=== PATIENT | female | born 1995 | race African-American/Black ===

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

== ENCOUNTER 2017-04-24 22:26 | Emergency (ER) | payer MEDICAID ==
[~2017-04-24] VITALS: Ht 154.9 cm; Wt 60.0 kg
[~2017-04-24 22:26] MED LIST changes: -CEPH-459 PO; +DIFL150T PO
[2017-04-24 22:28] VITALS: BP 134/76; PULSE 117; RESP 16; TEMP 98.5; O2SAT 99
--- NOTE | 2017-04-25 00:05 | PD ---
HPI Chief Complaint: Abdominal Pain Time Seen by Provider: 23:58 Travel History International Travel<30 days: No Contact w/Intl Traveler<30days: No Traveled to known affect area: No History of Present Illness HPI Patient comes in complaining of lower abdominal pains that she describes as crampy pain. Patient states ongoing for 2 weeks. Patient denies any dysuria, change in bowel or bladder, vaginal discharge, back pain, fevers, chest pain, or shortness of breath. Patient denies doing anything for this prior to coming emergency department. Denies anything making it better or worse. Patient is uncertain if she is . States she is A1 PFSH Past Medical History Medical History: Denies Significant Hx Diminished Hearing: No Immunizations Current: No Tetanus Vaccination: < 5 Years ?: Unknown LMP: 03/28/2017 : 2 Past Surgical History Ear Surgery: Yes (right ear tubes) Social History Alcohol Use: No Tobacco Use: No Substance Use: No Allergies-Medications (Allergen,Severity, Reaction): Coded Allergies: No Known Allergies (Unverified , 11/18/16) Reported Meds & Prescriptions Reported Meds & Active Scripts Active Diflucan (Fluconazole) 150 Mg Tab 150 Mg PO ONCE Review of Systems Except as stated in HPI: all other systems reviewed are Neg Physical Exam Narrative GENERAL: Well-developed, overly nourished, in no acute distress, and non-ill appearing. SKIN: Focused skin assessment warm and dry. HEAD: Atraumatic. Normocephalic. EYES: Pupils equal and round. EOMI. No scleral icterus. No injection or drainage. ENT: No nasal bleeding or discharge. Mucous membranes pink and moist. NECK: Trachea midline. Supple. No nuclear rigidity. CARDIOVASCULAR: Regular rate and rhythm. No murmur appreciated. RESPIRATORY: No accessory muscle use. No respiratory distress. Clear to auscultation. Breath sounds equal bilaterally. GASTROINTESTINAL: Abdomen soft, non-tender, nondistended, and no guarding. Hepatic and splenic margins not palpable. Normal bowel sounds 4. No pulsatile mass. MUSCULOSKELETAL: No obvious deformities. No clubbing. No cyanosis. No edema. Full range of motion. NEUROLOGICAL: Awake and alert. No obvious cranial nerve deficits. Motor grossly within normal limits. Normal speech. PSYCHIATRIC: Appropriate mood and affect; insight and judgment normal. Data Data Last Documented VS Vital Signs Date Time Temp Pulse Resp B/P (MAP) Pulse Ox O2 Delivery O2 Flow Rate FiO2 04/25/17 03:32 04/24/17 22:28 98.5 117 16 99 Room Air Orders Orders Beta Hcg (Quant/Titer) (04/25/17 00:01) Complete Blood Count With Diff (04/25/17 00:01) Comprehensive Metabolic Panel (04/25/17 00:01) Complete Rh (04/25/17 00:01) Urinalysis - C+S If Indicated (04/25/17 00:01) Iv Access Insert/Monitor (04/25/17 00:01) Ecg Monitoring (04/25/17 00:01) Ed Urine Pregnancytest Poc (04/25/17 00:01) Us Pelvis (Ques Pr/Ect)W Trans (04/25/17 ) Ed Discharge Order (04/25/17 03:00) Labs Laboratory Tests Test 04/25/17 00:00 04/25/17 00:45 Urine Color YELLOW Urine Turbidity CLEAR Urine pH 5.5 Urine Specific [place] 1.018 Urine Protein NEG mg/dL Urine Glucose (UA) NEG mg/dL Urine Ketones NEG mg/dL Urine Occult Blood NEG Urine Nitrite NEG Urine Bilirubin NEG Urine Urobilinogen LESS THAN 2.0 MG/DL Urine Leukocyte Esterase TRACE Urine RBC 1 /hpf Urine WBC 2 /hpf Urine Squamous Epithelial Cells 3 /hpf Urine Amorphous Sediment RARE Urine Bacteria OCC /hpf Urine Mucus FEW /lpf Microscopic Urinalysis Comment CULT NOT INDICATED White Blood Count 6.9 TH/MM3 Red Blood Count 4.52 MIL/MM3 Hemoglobin 13.2 GM/DL Hematocrit 40.2 % Mean Corpuscular Volume 88.9 FL Mean Corpuscular Hemoglobin 29.3 PG Mean Corpuscular Hemoglobin Concent 33.0 % Red Cell Distribution Width 20.6 % Platelet Count 262 TH/MM3 Mean Platelet Volume 8.4 FL Neutrophils (%) (Auto) 52.0 % Lymphocytes (%) (Auto) 38.2 % Monocytes (%) (Auto) 7.3 % Eosinophils (%) (Auto) 1.5 % Basophils (%) (Auto) 1.0 % Neutrophils # (Auto) 3.6 TH/MM3 Lymphocytes # (Auto) 2.6 TH/MM3 Monocytes # (Auto) 0.5 TH/MM3 Eosinophils # (Auto) 0.1 TH/MM3 Basophils # (Auto) 0.1 TH/MM3 CBC Comment DIFF FINAL Differential Comment Blood Urea Nitrogen 10 MG/DL Creatinine 0.85 MG/DL Random Glucose 69 MG/DL Total Protein 8.9 GM/DL Albumin 4.0 GM/DL Calcium Level 9.1 MG/DL Alkaline Phosphatase 53 U/L Aspartate Amino Transf (AST/SGOT) 33 U/L Alanine Aminotransferase (ALT/SGPT) 27 U/L Total Bilirubin 0.4 MG/DL Sodium Level 138 MEQ/L Potassium Level 3.7 MEQ/L Chloride Level 105 MEQ/L Carbon Dioxide Level 24.4 MEQ/L Anion Gap 9 MEQ/L Estimat Glomerular Filtration Rate 104 ML/MIN Human Chorionic Gonadotropin, Quant 718 MIU/ML [facility] Medical Decision Making Medical Screen Exam Complete: Yes Emergency Medical Condition: Yes Differential Diagnosis , UTI, ectopic , metabolic disturbance, ovarian cyst, ovarian torsion, other Narrative Course Patient presented with lower abdominal pain and the test was positive. Ultrasound was performed and there is no obvious evidence of a uterine . However the quantitative B-HcG was low and last menstrual cycle was recent and therefore eludes to an early not able to be seen by sonography. There is no evidence to suggest obvious ectopic or ruptured ectopic , nor cervicitis, PID or torsion at this time. There was no evidence to support colitis, diverticulitis, obstruction, abdominal or femoral herniation, volvulus, early appendicitis, or hernial incarceration or strangulation at this time. Patient is stable and no clinical evidence of anemia. There is no RH incompatibility. The patient therefore can be released at this time with acute follow up. Patient was warned on the possibility of an ectopic and to return IMMEDIATELY if the pain worsened and/or bleeding , felt faint or passed out. The patient was instructed to follow up with OB within 2 days, and was given contact information. She was given ectopic warnings and warnings to return if felt faint or passed out, fever, worsening pain, inability to tolerate fluids, or as needed. The patient agreed with plan and stated will follow up as instructed. Patient in no obvious distress upon re-evaluation. All pertinent laboratory/ Radiology result(s) discussed with patient. Any questions/concerns in reference to patient diagnosis/condition discussed and clarified prior to patient's discharge. Reinforced sheer importance of close follow up with an OB. Instructed patient to return to ED immediately, if symptoms return/worsen. Patient showed understanding of above instructions. Further instructions and recommendations were detailed in discharge paperwork. Patient ambulated without difficulty out of ED at discharge. Diagnosis Primary Impression: Early stage of Referrals: [facility] Patient Instructions: Abdominal Pain in (ED), General Instructions Additional Instructions: Follow-up with your OB in 48 hours or return here in 48 hours for recheck. Started taking [id number] vitamins. Follow instructions on the packaging. Return to the emergency department if symptoms get worse. Med/Other Pt SpecificInfo: Prescription(s) given Disposition: 01 DISCHARGE HOME Condition: Stable Delon Ndiaye Apr 25, 2017 00:05
[2017-04-25 00:56] LABS: AUTOMATED NEUTROPHIL # 3.6 TH/MM3 (1.8-7.7); BASOPHIL # 0.1 TH/MM3 (0-0.2); EOSINOPHIL # 0.1 TH/MM3 (0-0.4); EOSINOPHIL % 1.5 % (0.0-4.0); HEMATOCRIT 40.2 % (35.0-46.0); HEMO FLAGS DIFF FINAL; LYMPH % 38.2 % (9.0-44.0); LYMPHOCYTE # 2.6 TH/MM3 (1.0-4.8); MEAN CELL VOLUME 88.9 FL (80.0-100.0); MEAN CORPUSCULAR HEMOGLOBIN 29.3 PG (27.0-34.0); MONO % 7.3 % (0.0-8.0); PLATELET COUNT 262 TH/MM3 (150-450); RED BLOOD COUNT 4.52 MIL/MM3 (4.00-5.30); RED CELL DISTRIBUTION WIDTH 20.6 % (11.6-17.2); WHITE BLOOD COUNT 6.9 TH/MM3 (4.0-11.0)
[2017-04-25 00:57] LABS: BACTERIA, URINE OCC /hpf; BLOOD, URINE NEG (NEG); COMMENT (UR) CULT NOT INDICATED; CULTURE IF INDICATED CULT NOT INDICATED; GLUCOSE,URINE NEG (NEG); KETONE, URINE NEG (NEG); MUCUS URINE FEW /lpf (OCC); NITRITE,URINE NEG (NEG); PH, URINE 5.5 (5.0-8.5); SQUAMOUS EPITHELIAL CELL URINE 3 /hpf (0-5); URINE COLOR YELLOW (YELLW/STRAW)
[2017-04-25 01:15] LABS: ALKALINE PHOSPHATASE 53 U/L (45-117); ALT (GPT) 27 U/L (9-42); BETA HCG QUANT 718 MIU/ML (0-5); TOTAL BILIRUBIN ADULT 0.4 MG/DL (0.2-1.0)
[2017-04-25 01:18] LABS: ANION GAP 9 MEQ/L (5-15); AST (GOT) 33 U/L (16-38); BICARBONATE 24.4 MEQ/L (21.0-32.0); BLOOD UREA NITROGEN 10 MG/DL (7-18); CHLORIDE 105 MEQ/L (98-107); GLOMERULAR FILTRATION RATE 104 ML/MIN (>89); SODIUM (NA) 138 MEQ/L (136-145)
[2017-04-25 01:19] LABS: POTASSIUM 3.7 MEQ/L (3.5-5.1)
--- NOTE | 2017-04-25 02:46 | RADRPT ---
EXAM DATE/TIME: 04/25/2017 01:37 [place] COMPARISON: No previous studies available for comparison. INDICATIONS : Nausea. Pelvic cramping. LAB(S): Beta-hC MEDICAL HISTORY : . SURGICAL HISTORY : Right ear tubes. ENCOUNTER: Initial ACUITY: 2 weeks PAIN SCORE: 3/10 LOCATION: Bilateral pelvis MEASUREMENTS: UTERUS: 6.8 x 4.0 x 3.4 cm ENDOMETRIAL STRIPE: 8 mm RIGHT OVARY: 1.8 x 2.8 x 2.6 cm LEFT OVARY: 1.7 x 1.4 x 1.2 cm FREE FLUID: Yes cul de sac FINDINGS: UTERUS: The myometrium has homogeneous echotexture without mass.There is a small hypoechoic collection within the endometrial lining measuring 1.3 x 0.8 x 0.9 cm., Could be an early gestational sac. RIGHT OVARY: Ovary contains no mass or significant cystic lesion. LEFT OVARY: Ovary contains no mass or significant cystic lesion. MISCELLANEOUS: minimal free fluid. CONCLUSION: Small hypoechoic collection within the uterus, could be an early gestational sac. No adnexal masses a re identified. Dell Fields MD on April 25, 2017 at 2:43 Board Certified Radiologist. This report was verified electronically.
== END 2017-04-25 03:32 | disposition home or self-care (01) ==
LOC: NEPD 22:26
DX: O26.891 Other specified pregnancy related conditions, first trimester (principal); R10.30 Lower abdominal pain, unspecified; Z3A.01 Less than 8 weeks gestation of pregnancy
CPT/HCPCS: 76700; 76817; 80053; 81001; 84702; 84703; 85025; 86901; 99284

== ENCOUNTER 2017-04-28 21:53 | Emergency (ER) | payer MEDICAID ==
[2017-04-28 21:54] VITALS: BP 134/72; PULSE 106; RESP 15; TEMP 99.1; O2SAT 100
--- NOTE | 2017-04-28 22:26 | PD ---
HPI Chief Complaint: Related Problem Time Seen by Provider: 22:15 Travel History International Travel<30 days: No Contact w/Intl Traveler<30days: No Traveled to known affect area: No History of Present Illness HPI Patient is a 21-year-old female who returns to emergency room for repeat hCG Quant. Patient reports that she was seen in emergency room on April 25, 2017 as she was having lower abdominal cramping pain for the past 2 weeks, reports that it was here in the ER that she was diagnosed with . Patient reports that this is her first , reports "I didn't even know I was ." Patient is unsure of when her first day for last menstrual cycle was. Patient reports that she was told to return to the emergency room in 3 days for repeat hCG Quant as her hCG Quant on April 25, 2017 with 718. Patient reports no abdominal pain, denies any nausea or vomiting, denies any vaginal discharge or bleeding. Patient with absolutely no complaints at this time. Patient reports that she will follow up with her OB equine manager when she goes home as she does not live in this area. [facility] Past Medical History Medical History: Denies Significant Hx Diminished Hearing: No Immunizations Current: No ?: LMP: 03/24/17 : 2 Past Surgical History Surgical History: No Previous Surgery Ear Surgery: Yes (right ear tubes) Social History Alcohol Use: No Tobacco Use: No Substance Use: No Allergies-Medications (Allergen,Severity, Reaction): Coded Allergies: No Known Allergies (Verified Adverse Reaction, Unknown, 04/28/17) Reported Meds & Prescriptions Reported Meds & Active Scripts Active Diflucan (Fluconazole) 150 Mg Tab 150 Mg PO ONCE Review of Systems General / Constitutional: No: Fever Eyes: No: Visual changes HENT: No: Headaches Cardiovascular: No: Chest Pain or Discomfort Respiratory: No: Shortness of Breath Gastrointestinal: No: Abdominal Pain Genitourinary: No: Dysuria Musculoskeletal: No: Pain Skin: No Rash Neurologic: No: Weakness Psychiatric: No: Depression Endocrine: No: Polydipsia Hematologic/Lymphatic: No: Easy Bruising Physical Exam Narrative GENERAL: NAD, nontoxic SKIN: Focused skin assessment warm/dry. HEAD: Atraumatic. Normocephalic. EYES: Pupils equal and round. No scleral icterus. No injection or drainage. ENT: No nasal bleeding or discharge. Mucous membranes pink and moist. NECK: Trachea midline. No JVD. CARDIOVASCULAR: Regular rate and rhythm. No murmur appreciated. RESPIRATORY: No accessory muscle use. Clear to auscultation. Breath sounds equal bilaterally. GASTROINTESTINAL: Abdomen soft, non-tender, nondistended. Hepatic and splenic margins not palpable. MUSCULOSKELETAL: No obvious deformities. No clubbing. No cyanosis. No edema. NEUROLOGICAL: Awake and alert. Motor grossly within normal limits. Normal speech. PSYCHIATRIC: Appropriate mood and affect; insight and judgment normal. Data Data Last Documented VS Vital Signs Date Time Temp Pulse Resp B/P (MAP) Pulse Ox O2 Delivery O2 Flow Rate FiO2 04/28/17 21:54 99.1 106 15 134/72 (92) 100 Room Air Orders Orders Beta Hcg (Quant/Titer) (04/28/17 22:18) Labs Laboratory Tests Test 04/28/17 22:20 Human Chorionic Gonadotropin, Quant 2842 MIU/ML MDM Medical Decision Making Medical Screen Exam Complete: Yes Emergency Medical Condition: Yes Medical Record Reviewed: Yes Interpretation(s) Vital Signs Date Time Temp Pulse Resp B/P (MAP) Pulse Ox O2 Delivery O2 Flow Rate FiO2 04/28/17 21:54 99.1 106 15 134/72 (92) 100 Room Air Differential Diagnosis Narrative Course 21-year-old female who presents to emergency for repeat hCG Quant HCG Quant on April 25, 2017 with 718 Patient with no abdominal pain or cramping or nausea or vomiting, no vaginal discharge or bleeding this time. Patient is completely asymptomatic and here only for repeat hCG Quant as she was told that she had early on her last ER visit. Laboratory Tests Test 04/28/17 22:20 Human Chorionic Gonadotropin, Quant 2842 MIU/ML (0-5) patient's HCG quant increased, patient with no complaints, no vag bleeding or discharge. She will follow up with her paid search manager and courtney return to ER as needed Diagnosis Primary Impression: Qualified Codes: Z34.90 - Encounter for supervision of normal , unspecified, unspecified trimester Patient Instructions: General Instructions Additional Instructions: Please provide patient with a copy of their lab work at discharge Please follow up with your ob-shredding machine knife changer as soon as possible Return to the ER as needed Disposition: 01 DISCHARGE HOME Condition: Stable Mica Woodson DO Apr 28, 2017 22:26
[2017-04-28 23:13] LABS: BETA HCG QUANT 2842 MIU/ML (0-5)
== END 2017-04-28 23:52 | disposition home or self-care (01) ==
LOC: NEPD 21:53
DX: O26.891 Other specified pregnancy related conditions, first trimester (principal); R10.30 Lower abdominal pain, unspecified; Z34.91 Encounter for supervision of normal pregnancy, unspecified, first trimester; Z79.899 Other long term (current) drug therapy
CPT/HCPCS: 84702; 99281

== ENCOUNTER 2017-05-09 21:41 | Emergency (ER) | payer MEDICAID ==
[~2017-05-09] VITALS: Ht 162.6 cm; Wt 58.0 kg
[2017-05-09 21:41] VITALS: BP 120/65; PULSE 106; RESP 16; TEMP 98.5; O2SAT 98
[2017-05-10 00:08] LABS: AUTOMATED NEUTROPHIL # 3.3 TH/MM3 (1.8-7.7); BASOPHIL % 0.7 % (0.0-2.0); EOSINOPHIL # 0.1 TH/MM3 (0-0.4); EOSINOPHIL % 1.9 % (0.0-4.0); HEMATOCRIT 38.5 % (35.0-46.0); HEMO FLAGS DIFF FINAL; LYMPH % 35.1 % (9.0-44.0); LYMPHOCYTE # 2.2 TH/MM3 (1.0-4.8); MEAN CELL VOLUME 89.6 FL (80.0-100.0); MEAN CORPUSCULAR HEMOGLOBIN 29.6 PG (27.0-34.0); MONO % 8.8 % (0.0-8.0); NEUT % 53.5 % (16.0-70.0); PLATELET COUNT 267 TH/MM3 (150-450); RED CELL DISTRIBUTION WIDTH 20.2 % (11.6-17.2); WHITE BLOOD COUNT 6.1 TH/MM3 (4.0-11.0)
[2017-05-10 00:40] LABS: BICARBONATE 26.5 MEQ/L (21.0-32.0); POTASSIUM 3.9 MEQ/L (3.5-5.1)
[2017-05-10 01:18] LABS: BACTERIA, URINE RARE /hpf; BLOOD, URINE LARGE (NEG); COMMENT (UR) CULT NOT INDICATED; CULTURE IF INDICATED CULT NOT INDICATED; GLUCOSE,URINE NEG (NEG); KETONE, URINE NEG (NEG); MUCUS URINE FEW /lpf (OCC); NITRITE,URINE NEG (NEG); PH, URINE 6.5 (5.0-8.5); SQUAMOUS EPITHELIAL CELL URINE 13 /hpf (0-5); URINE COLOR YELLOW (YELLW/STRAW)
--- NOTE | 2017-05-10 01:28 | PD ---
HPI Chief Complaint: Bed Setter Problem/Complaint Time Seen by Provider: 23:38 Travel History International Travel<30 days: No Contact w/Intl Traveler<30days: No Traveled to known affect area: No History of Present Illness HPI 21-year-old female here for evaluation of possible miscarriage. Patient reports that her last menstrual. Was March 24. She states she was seen in the emergency department here on 04/24/17 as well as 04/28/17. These charts were reviewed and the patient's first visit show the patient had a positive test with an inconclusive pelvic ultrasound. On the next visit the patient had an appropriately increasing beta hCG. She states that yesterday she had some right lower quadrant cramping, and today she noted some vaginal spotting. She has not noted any clots. Currently no abdominal pain or cramping. This is her first . [facility] Past Medical History Diminished Hearing: No Immunizations Current: Yes Tetanus Vaccination: Unknown Influenza Vaccination: Yes ?: Unknown LMP: 03/24/17 : 2 Past Surgical History Ear Surgery: Yes (right ear tubes) Social History Alcohol Use: No Tobacco Use: No Substance Use: No Allergies-Medications (Allergen,Severity, Reaction): Coded Allergies: No Known Allergies (Verified Adverse Reaction, Unknown, 05/09/17) Reported Meds & Prescriptions Reported Meds & Active Scripts Active No Active Prescriptions or Reported Medications Review of Systems Except as stated in HPI: all other systems reviewed are Neg Physical Exam Narrative GENERAL: Well-developed, well-nourished, comfortable, no apparent distress. SKIN: Focused skin assessment warm/dry. No pallor. HEAD: Atraumatic. Normocephalic. EYES: Pupils equal and round. No scleral icterus. No injection or drainage. ENT: Mucous membranes pink and moist. NECK: Trachea midline. No JVD. CARDIOVASCULAR: Regular rate and rhythm. No murmur appreciated. RESPIRATORY: No accessory muscle use. Clear to auscultation. Breath sounds equal bilaterally. GASTROINTESTINAL: Abdomen soft, non-tender, nondistended. MUSCULOSKELETAL: No obvious deformities. No clubbing. No cyanosis. No edema. NEUROLOGICAL: Awake and alert. No obvious cranial nerve deficits. Motor grossly within normal limits. Normal speech. PSYCHIATRIC: Appropriate mood and affect; insight and judgment normal. Data Data Last Documented VS Vital Signs Date Time Temp Pulse Resp B/P (MAP) Pulse Ox O2 Delivery O2 Flow Rate FiO2 05/09/17 21:41 98.5 106 16 120/65 (83) 98 Room Air Orders Orders Beta Hcg (Quant/Titer) (05/09/17 23:45) Complete Blood Count With Diff (05/09/17 23:45) Basic Metabolic Panel (Bmp) (05/09/17 23:45) Urinalysis - C+S If Indicated (05/09/17 23:45) Ed Urine Pregnancytest Poc (05/09/17 23:49) Us Pelvis (Ques Pr/Ect)W Trans (05/10/17 ) Labs Laboratory Tests Test 05/09/17 23:55 05/10/17 00:30 White Blood Count 6.1 TH/MM3 Red Blood Count 4.30 MIL/MM3 Hemoglobin 12.7 GM/DL Hematocrit 38.5 % Mean Corpuscular Volume 89.6 FL Mean Corpuscular Hemoglobin 29.6 PG Mean Corpuscular Hemoglobin Concent 33.0 % Red Cell Distribution Width 20.2 % Platelet Count 267 TH/MM3 Mean Platelet Volume 8.6 FL Neutrophils (%) (Auto) 53.5 % Lymphocytes (%) (Auto) 35.1 % Monocytes (%) (Auto) 8.8 % Eosinophils (%) (Auto) 1.9 % Basophils (%) (Auto) 0.7 % Neutrophils # (Auto) 3.3 TH/MM3 Lymphocytes # (Auto) 2.2 TH/MM3 Monocytes # (Auto) 0.5 TH/MM3 Eosinophils # (Auto) 0.1 TH/MM3 Basophils # (Auto) 0.0 TH/MM3 CBC Comment DIFF FINAL Differential Comment Blood Urea Nitrogen 7 MG/DL Creatinine 0.68 MG/DL Random Glucose 70 MG/DL Calcium Level 9.1 MG/DL Sodium Level 138 MEQ/L Potassium Level 3.9 MEQ/L Chloride Level 105 MEQ/L Carbon Dioxide Level 26.5 MEQ/L Anion Gap 7 MEQ/L Estimat Glomerular Filtration Rate 135 ML/MIN Human Chorionic Gonadotropin, Quant 44727 MIU/ML Urine Color YELLOW Urine Turbidity HAZY Urine pH 6.5 Urine Specific [place] 1.022 Urine Protein TRACE mg/dL Urine Glucose (UA) NEG mg/dL Urine Ketones NEG mg/dL Urine Occult Blood LARGE Urine Nitrite NEG Urine Bilirubin NEG Urine Urobilinogen LESS THAN 2.0 MG/DL Urine Leukocyte Esterase TRACE Urine RBC 10 /hpf Urine WBC 2 /hpf Urine Squamous Epithelial Cells 13 /hpf Urine Bacteria RARE /hpf Urine Mucus FEW /lpf Microscopic Urinalysis Comment CULT NOT INDICATED MDM Medical Decision Making Medical Screen Exam Complete: Yes Emergency Medical Condition: Yes Medical Record Reviewed: Yes Differential Diagnosis Threatened , inevitable , , ectopic , implantation bleeding, subchorionic hemorrhage, spontaneous Narrative Course Initial vital signs show heart rate 106, blood pressure 120/65, pulse ox 98% on room air, oral temp of 98.5F. CBC: WBC 6.1, hemoglobin 12.7, hematocrit 38.5, platelets 267. BMP is unremarkable. Beta hCG is 12,064. Blood type from previous visit is A+. UA shows hazy urine, large occult blood, trace leukocyte esterase, 10 rbc's, rare bacteria, few mucus, 13 epithelial cells Pelvic ultrasound: CONCLUSION: 1. No IUP is seen. 2. Moderate free fluid in the cul-de-sac. 3. An ectopic cannot be excluded. Pelvic exam shows small amount of blood in the vaginal vault with a closed cervix. 2:15 AM: Case discussed with on-call OB hospitalist Dr. Palacio who will present to the emergency department to evaluate the patient as this is likely an ectopic . At approximately 3:00 AM the patient was signed out to ER physician Dr. Whelan pending evaluation by OB hospitalist Dr. Palacio and disposition. Scripts No Active Prescriptions or Reported Meds Garcia Wyman MD May 10, 2017 01:28
--- NOTE | 2017-05-10 01:58 | RADRPT ---
EXAM DATE/TIME: 05/10/2017 01:09 [place] COMPARISON: US PELVIS (QUEST PREG/ECTOPIC) W/TRANSVAG, April 25, 2017, 1:37. INDICATIONS : Bleeding with . LAB(S): Beta-hC,064 MEDICAL HISTORY : . SURGICAL HISTORY : Ear tubes. ENCOUNTER: Subsequent ACUITY: 1 day PAIN SCORE: 0/10 LOCATION: Bilateral pelvis MEASUREMENTS: UTERUS: 6.6 x 4.2 x 4.6 cm ENDOMETRIAL STRIPE: 18 mm RIGHT OVARY: 3.2 x 1.5 x 1.8 cm LEFT OVARY: 2.7 x 1.2 x 1.3 cm FREE FLUID: Yes Cul-de-sac CROWN RUMP LENGTH: None FHR: None FINDINGS: UTERUS: The uterus is retroflexed. The endometrium appears thickened and heterogeneous with a gestational sac is not seen. There is a small amount of fluid within the endocervical canal. RIGHT OVARY: Ovary contains no mass or significant cystic lesion. LEFT OVARY: Ovary contains no mass or significant cystic lesion. Small subcentimeter cysts/follicles are seen. MISCELLANEOUS: There is moderate free fluid. CONCLUSION: 1. No IUP is seen. 2. Moderate free fluid in the cul-de-sac. 3. An ectopic cannot be excluded. Prince Joshi MD on May 10, 2017 at 1:51 Board Certified Radiologist. This report was verified electronically.
[2017-05-10 03:30] VITALS: BP 96/64; PULSE 89; RESP 16; O2SAT 98
[2017-05-10 04:55] LABS: INDIRECT BILIRUBIN 0.1 MG/DL (0.0-0.8); TOTAL BILIRUBIN ADULT 0.2 MG/DL (0.2-1.0)
--- NOTE | 2017-05-10 04:56 | PD.CONS ---
HPI Chief Complaint Ectopic Date Seen: May 10, 2017 Time Seen: 04:30 Travel History International Travel<30 Days: No Contact w/Intl Traveler<30Days: No Known Affected Area: No History of Present Illness HPI Patient is 21-year-old black female who is in early presented week ago for test check an ultrasound. When she had that ultrasound showed an empty uterus on scan and a quantitative hCG of 700 she was told return in 3 days she's come back in a week her hCG now is 12,000 and her uterus is still no gestational sac just thickened tissue and small areas of fluid dispersed in the and the uterus and endocervical canal. She has no pelvic pain she has had some bleeding at times heavier than a period with small clots but today is only bleeding minimally. Findings are consistent with ectopic gestation and that she's had never had a gestational sac and her quantitative risen rather rapidly in the last week Weeks Gestation: 4 Para: 0 : 1 Last Menstrual Period: Mar 24, 2017 History Past Surgical History Narrative Surgical PE tubes in her ears Social History Alcohol Use: No Tobacco Use: No Substance Abuse: No Allergies-Medications (Allergen,Severity, Reaction): Coded Allergies: No Known Allergies (Verified Adverse Reaction, Unknown, 05/09/17) Home Meds Discontinued Scripts Fluconazole (Diflucan) 150 Mg Tab, 150 MG PO ONCE for Infection, #1 TAB 0 Refills Prov:Garcia Wyman MD 11/18/16 Review of Systems General / Constitutional: No: Fever, Weight Gain, Chills, Other Eyes: No: Diploplia, Blurred Vision, Visual changes, Pain, Photophobia HENT: No: Headaches, Vertigo, Lightheadedness Cardiovascular: No: Irregular Rhythm, Chest Pain or Discomfort, Palpitations, Tachycardia, Syncope, Varicosities, Edema, Cyanosis Respiratory: No: Cough, Short of Breath, Other Gastrointestinal: No: Nausea, Vomiting, Diarrhea Genitourinary: No: Decreased Urinary Output, Oliguria Musculoskeletal: No: Limited ROM, Weakness, Cramping, Edema, Pain Skin: No Rash, No Itching, No Dryness, No Lumps, No Change in Pigmentation, No Change in Nails, No Alopecia, No Lesions Neurologic: No: Weakness, Dizziness, Syncope, Focal Abnormalities, Coordination Problem, Headache, Slurred Speech, Seizures Psychiatric: No: Depression, Suicidal Ideations, Homicidal Ideation Endocrine: No: Heat Intolerance, Cold Intolerance, Polydipsia, Polyuria, Other Physical Exam Vital Signs Date Time Temp Pulse Resp B/P (MAP) Pulse Ox O2 Delivery O2 Flow Rate FiO2 05/10/17 03:30 89 16 96/64 (75) 98 Room Air 05/09/17 21:41 98.5 106 16 120/65 (83) 98 Room Air Narrative GENERAL: Well-nourished, well-developed patient. SKIN: Warm and dry. HEAD: Normocephalic and atraumatic. EYES: No scleral icterus. No injection or drainage. ENT: No nasal drainage noted. Mucous membranes pink. Airway patent. NECK: Supple, trachea midline. No JVD. CARDIOVASCULAR: Regular rate and rhythm without murmurs, gallops, or rubs. RESPIRATORY: Breath sounds equal bilaterally. No accessory muscle use. BREASTS: Bilateral exam showed no masses , no retractions, no nipple discharge. ABDOMEN/GI: Abdomen soft, non-tender, bowel sounds present, no rebound, no guarding GENITOURINARY: External Genitalia: intact and normal in appearance BUS glands: [-] Cervix: [no -Cervical motion tenderness] Uterus is retroflexed small nontender as no adnexal masses or pain to palpation of the adnexa EXTREMITIES: No cyanosis or edema. BACK: Nontender without obvious deformity. No CVA tenderness. NEUROLOGICAL: Awake and alert. Motor and sensory grossly within normal limits. Five out of 5 muscle strength in all muscle groups. Normal speech. Data Data Orders Orders Beta Hcg (Quant/Titer) (05/09/17 23:45) Complete Blood Count With Diff (05/09/17 23:45) Basic Metabolic Panel (Bmp) (05/09/17 23:45) Urinalysis - C+S If Indicated (05/09/17 23:45) Ed Urine Pregnancytest Poc (05/09/17 23:49) Us Pelvis (Ques Pr/Ect)W Trans (05/10/17 ) Hepatic Functional Panel (05/10/17 04:25) Methotrexate Pf Inj (Methotrexate Pf Inj (05/10/17 05:00) Labs Laboratory Tests Test 05/09/17 23:55 05/10/17 00:30 White Blood Count 6.1 Red Blood Count 4.30 Hemoglobin 12.7 Hematocrit 38.5 Mean Corpuscular Volume 89.6 Mean Corpuscular Hemoglobin 29.6 Mean Corpuscular Hemoglobin Concent 33.0 Red Cell Distribution Width 20.2 Platelet Count 267 Mean Platelet Volume 8.6 Neutrophils (%) (Auto) 53.5 Lymphocytes (%) (Auto) 35.1 Monocytes (%) (Auto) 8.8 Eosinophils (%) (Auto) 1.9 Basophils (%) (Auto) 0.7 Neutrophils # (Auto) 3.3 Lymphocytes # (Auto) 2.2 Monocytes # (Auto) 0.5 Eosinophils # (Auto) 0.1 Basophils # (Auto) 0.0 CBC Comment DIFF FINAL Differential Comment Blood Urea Nitrogen 7 Creatinine 0.68 Random Glucose 70 Calcium Level 9.1 Sodium Level 138 Potassium Level 3.9 Chloride Level 105 Carbon Dioxide Level 26.5 Anion Gap 7 Estimat Glomerular Filtration Rate 135 Human Chorionic Gonadotropin, Quant 91380 Urine Color YELLOW Urine Turbidity HAZY Urine pH 6.5 Urine Specific [place] 1.022 Urine Protein TRACE Urine Glucose (UA) NEG Urine Ketones NEG Urine Occult Blood LARGE Urine Nitrite NEG Urine Bilirubin NEG Urine Urobilinogen LESS THAN 2.0 Urine Leukocyte Esterase TRACE Urine RBC 10 Urine WBC 2 Urine Squamous Epithelial Cells 13 Urine Bacteria RARE Urine Mucus FEW Microscopic Urinalysis Comment CULT NOT INDICATED MDM Interpretation(s) Patient is 21-year-old black female with ectopic gestation is supported by the evidence that she has an empty uterus on ultrasound no gestational sac in the 2 scans noted and a rising hCGs now 12,000 ectopic is intact she has no blood in the abdomen she has no pain on exam or and general, she is having some vaginal spotting at this time Plan Plan is 75 mg of methotrexate IM, with repeat labs drawn on day 4 of therapy which would be Tuesday this week and then day 7 of therapy with next Tuesday. Arrange follow-up with Dr. Mallory Fuentes's office as she is the LIVING SKILLS ADVISOR backup tonight. Patient counseled to avoid the vitamins and any Folic acid or folate- containing products and diet. Avoid NSAIDs as well Diagnosis: ectopic Disposition: DISCHARGE HOME Condition: Stable Scripts No Active Prescriptions or Reported Meds Chase Palacio II, MD May 10, 2017 04:56
[2017-05-10] MEDS ORDERED: METHOTREXATE SOD PF 50 MG/2 ML VIAL IM SCH (05:00)
--- NOTE | 2017-05-10 05:04 | PD ---
Physical Exam Narrative Patient was seen by ED physician and ED OB. Patient was given methotrexate and discharge. Data Data Last Documented VS Vital Signs Date Time Temp Pulse Resp B/P (MAP) Pulse Ox O2 Delivery O2 Flow Rate FiO2 05/10/17 05:19 05/10/17 03:30 89 16 98 Room Air 05/09/17 21:41 98.5 Orders Orders Beta Hcg (Quant/Titer) (05/09/17 23:45) Complete Blood Count With Diff (05/09/17 23:45) Basic Metabolic Panel (Bmp) (05/09/17 23:45) Urinalysis - C+S If Indicated (05/09/17 23:45) Ed Urine Pregnancytest Poc (05/09/17 23:49) Us Pelvis (Ques Pr/Ect)W Trans (05/10/17 ) Hepatic Functional Panel (05/10/17 04:25) Methotrexate Pf Inj (Methotrexate Pf Inj (05/10/17 05:00) Ed Discharge Order (05/10/17 05:02) Labs Laboratory Tests Test 05/09/17 23:55 05/10/17 00:30 White Blood Count 6.1 TH/MM3 Red Blood Count 4.30 MIL/MM3 Hemoglobin 12.7 GM/DL Hematocrit 38.5 % Mean Corpuscular Volume 89.6 FL Mean Corpuscular Hemoglobin 29.6 PG Mean Corpuscular Hemoglobin Concent 33.0 % Red Cell Distribution Width 20.2 % Platelet Count 267 TH/MM3 Mean Platelet Volume 8.6 FL Neutrophils (%) (Auto) 53.5 % Lymphocytes (%) (Auto) 35.1 % Monocytes (%) (Auto) 8.8 % Eosinophils (%) (Auto) 1.9 % Basophils (%) (Auto) 0.7 % Neutrophils # (Auto) 3.3 TH/MM3 Lymphocytes # (Auto) 2.2 TH/MM3 Monocytes # (Auto) 0.5 TH/MM3 Eosinophils # (Auto) 0.1 TH/MM3 Basophils # (Auto) 0.0 TH/MM3 CBC Comment DIFF FINAL Differential Comment Blood Urea Nitrogen 7 MG/DL Creatinine 0.68 MG/DL Random Glucose 70 MG/DL Calcium Level 9.1 MG/DL Sodium Level 138 MEQ/L Potassium Level 3.9 MEQ/L Chloride Level 105 MEQ/L Carbon Dioxide Level 26.5 MEQ/L Anion Gap 7 MEQ/L Estimat Glomerular Filtration Rate 135 ML/MIN Total Bilirubin 0.2 MG/DL Direct Bilirubin 0.1 MG/DL Indirect Bilirubin 0.1 MG/DL Aspartate Amino Transf (AST/SGOT) 17 U/L Alanine Aminotransferase (ALT/SGPT) 23 U/L Alkaline Phosphatase 53 U/L Total Protein 8.2 GM/DL Albumin 3.5 GM/DL Human Chorionic Gonadotropin, Quant 12238 MIU/ML Urine Color YELLOW Urine Turbidity HAZY Urine pH 6.5 Urine Specific [place] 1.022 Urine Protein TRACE mg/dL Urine Glucose (UA) NEG mg/dL Urine Ketones NEG mg/dL Urine Occult Blood LARGE Urine Nitrite NEG Urine Bilirubin NEG Urine Urobilinogen LESS THAN 2.0 MG/DL Urine Leukocyte Esterase TRACE Urine RBC 10 /hpf Urine WBC 2 /hpf Urine Squamous Epithelial Cells 13 /hpf Urine Bacteria RARE /hpf Urine Mucus FEW /lpf Microscopic Urinalysis Comment CULT NOT INDICATED MDM Supervised Visit with SARAH: No Narrative Course Patient was seen by ED physician and ED OB. Patient was given methotrexate and discharge. Diagnosis Primary Impression: Ectopic Qualified Codes: O00.90 - Unspecified ectopic without intrauterine Patient Instructions: General Instructions Additional Instruction: Follow-up with residential support specialist as directed. Return if increased abdominal pain, increasing vaginal bleeding, fever. Med/Other Pt SpecificInfo: No Meds Exist/No RX given Scripts No Active Prescriptions or Reported Meds Disposition: 01 DISCHARGE HOME Condition: Stable Eddie Whelan MD May 10, 2017 05:04
== END 2017-05-10 05:20 | disposition home or self-care (01) ==
LOC: NEPD 21:41
DX: O00.90 Unspecified ectopic pregnancy without intrauterine pregnancy (principal)
CPT/HCPCS: 76700; 76817; 80048; 80076; 81001; 84702; 84703; 85025; 96372; 99285; J9250

== ENCOUNTER 2017-05-14 23:23 | Emergency (ER) | payer MEDICAID ==
[2017-05-14 23:24] VITALS: BP 144/63; PULSE 95; RESP 18; TEMP 97.5; O2SAT 99
--- NOTE | 2017-05-14 23:46 | PD ---
HPI Chief Complaint: Abdominal Pain Time Seen by Provider: 23:42 Travel History International Travel<30 days: No Contact w/Intl Traveler<30days: No Traveled to known affect area: No History of Present Illness HPI 21-year-old female presents for evaluation of 2 separate complaints. She reports lower abdominal cramping which is been ongoing for the past several days. She was recently diagnosed with ectopic and received methotrexate on May 10. She was supposed to have a repeat quantitative hCG drawn yesterday however she missed her pulmonary [facility]. She reports that she follow-up at Dr. Singh office a few days ago as instructed. She reports that she has continued to have some vaginal bleeding with some clots. She denies any dizziness, lightheadedness, nausea, vomiting, fevers, chills, dysuria. In addition the patient is complaining of a bump on her right buttocks. She first noticed it a few weeks ago but it has gotten larger over the past few days. She reports some soreness when she sits. Denies any drainage. She has no other complaints. [facility] Past Medical History Diminished Hearing: No Immunizations Current: Yes ?: Not : 2 Past Surgical History Ear Surgery: Yes (right ear tubes) Social History Alcohol Use: No Tobacco Use: No Substance Use: No Allergies-Medications (Allergen,Severity, Reaction): Coded Allergies: No Known Allergies (Verified Adverse Reaction, Unknown, 05/09/17) Reported Meds & Prescriptions Reported Meds & Active Scripts Active No Active Prescriptions or Reported Medications Review of Systems Except as stated in HPI: all other systems reviewed are Neg Physical Exam Narrative GENERAL: Well-developed well-nourished female in no acute distress SKIN: Warm and dry. 0.5 cm fluctuant cystic lesion on the right buttocks. Tender to palpation with no drainage. HEAD: Atraumatic. Normocephalic. EYES: Pupils equal and round. No scleral icterus. No injection or drainage. ENT: No nasal bleeding or discharge. Mucous membranes pink and moist. NECK: Trachea midline. No JVD. CARDIOVASCULAR: Regular rate and rhythm. No murmur appreciated. RESPIRATORY: No accessory muscle use. Clear to auscultation. Breath sounds equal bilaterally. GASTROINTESTINAL: Abdomen soft, mild suprapubic tenderness without guarding. No adnexal tenderness. MUSCULOSKELETAL: No obvious deformities. No clubbing. No cyanosis. No edema. NEUROLOGICAL: Awake and alert. No obvious cranial nerve deficits. Motor grossly within normal limits. Normal speech. PSYCHIATRIC: Appropriate mood and affect; insight and judgment normal. Data Data Last Documented VS Vital Signs Date Time Temp Pulse Resp B/P (MAP) Pulse Ox O2 Delivery O2 Flow Rate FiO2 05/14/17 23:24 97.5 95 18 144/63 (90) 99 Room Air Orders Orders Beta Hcg (Quant/Titer) (05/14/17 23:41) Complete Blood Count With Diff (05/14/17 23:41) Comprehensive Metabolic Panel (05/14/17 23:41) Urinalysis - C+S If Indicated (05/14/17 23:41) Urine Culture (05/14/17 23:59) Labs Laboratory Tests Test 05/14/17 23:50 05/14/17 23:59 White Blood Count 6.3 TH/MM3 Red Blood Count 3.68 MIL/MM3 Hemoglobin 11.1 GM/DL Hematocrit 33.1 % Mean Corpuscular Volume 90.1 FL Mean Corpuscular Hemoglobin 30.2 PG Mean Corpuscular Hemoglobin Concent 33.5 % Red Cell Distribution Width 19.6 % Platelet Count 234 TH/MM3 Mean Platelet Volume 8.5 FL Neutrophils (%) (Auto) 59.2 % Lymphocytes (%) (Auto) 33.8 % Monocytes (%) (Auto) 4.6 % Eosinophils (%) (Auto) 1.5 % Basophils (%) (Auto) 0.9 % Neutrophils # (Auto) 3.7 TH/MM3 Lymphocytes # (Auto) 2.1 TH/MM3 Monocytes # (Auto) 0.3 TH/MM3 Eosinophils # (Auto) 0.1 TH/MM3 Basophils # (Auto) 0.1 TH/MM3 CBC Comment DIFF FINAL Differential Comment Blood Urea Nitrogen 13 MG/DL Creatinine 0.85 MG/DL Random Glucose 64 MG/DL Total Protein 7.4 GM/DL Albumin 3.3 GM/DL Calcium Level 8.6 MG/DL Alkaline Phosphatase 40 U/L Aspartate Amino Transf (AST/SGOT) 20 U/L Alanine Aminotransferase (ALT/SGPT) 19 U/L Total Bilirubin 0.1 MG/DL Sodium Level 141 MEQ/L Potassium Level 4.1 MEQ/L Chloride Level 110 MEQ/L Carbon Dioxide Level 25.5 MEQ/L Anion Gap 6 MEQ/L Estimat Glomerular Filtration Rate 104 ML/MIN Human Chorionic Gonadotropin, Quant 937 MIU/ML Urine Color DARK-RED Urine Turbidity CLOUDY Urine pH 6.0 Urine Specific [place] 1.032 Urine Protein 100 mg/dL Urine Glucose (UA) NEG mg/dL Urine Ketones 10 mg/dL Urine Occult Blood LARGE Urine Nitrite NEG Urine Bilirubin NEG Urine Urobilinogen LESS THAN 2.0 MG/DL Urine Leukocyte Esterase SMALL Urine RBC /hpf Urine WBC 20 /hpf Urine WBC Clumps FEW Urine Squamous Epithelial Cells 23 /hpf Urine Mucus FEW /lpf Microscopic Urinalysis Comment CULTURE INDICATED MDM Medical Decision Making Medical Screen Exam Complete: Yes Emergency Medical Condition: Yes Medical Record Reviewed: Yes Differential Diagnosis Ectopic , ruptured ectopic , incomplete , missed , cystitis Infected cyst, abscess, cellulitis Narrative Course 21-year-old female recently diagnosed with ectopic , received methotrexate therapy in May 10, presents with persistent pelvic cramping as well as vaginal bleeding. She missed her appointment yesterday to have her beta hCG rechecked. Examination is reassuring with a soft benign abdomen. She is hemodynamically stable. Plan is for basic lab work including quantitative beta hCG. In addition the patient had a small infected cutaneous cystic lesion on her right buttocks. This was drained with a needle aspiration, she verbally consented. I discussed with my attending who agrees with plan of care. Reassuringly her quantitative beta hCG has dropped from [id number] on may 09 to 937 today. At this point in time the plan is to have the patient follow-up as an outpatient with her [employer]PORATE [employer]FFIC [employer]NAGER, outpatient quantitative beta-hCG 7 days after the administration of methotrexate as previously indicated. Discussed signs and symptoms that would warrant returning to the emergency room. She is stable for discharge. Procedures Procedure Narrative INCISION AND DRAINAGE OF INFECTED CYST The area was prepped and was sterilely draped. The cystic lesion was punctured with a 18-gauge needle. Purulent drainage was expressed. Patient tolerated procedure well. Diagnosis Primary Impression: Ectopic Qualified Codes: O00.90 - Unspecified ectopic without intrauterine Additional Impression: Infected cyst of skin Additional Instructions: Follow-up as an outpatient as discussed. Return for any acutely new or worsening symptoms. Med/Other Pt SpecificInfo: No Change to Meds Scripts No Active Prescriptions or Reported Meds Disposition: DISCHARGE HOME Condition: Stable Ari,Mike P. PA May 14, 2017 23:46
--- NOTE | 2017-05-14 23:46 | PD ---
Physical Exam Date Seen by Provider: May 14, 2017 Time Seen by Provider: 23:40 Narrative Patient presents with super pubic abdominal pain and with a cyst on her buttock. She has had a recent ectopic treated medically with methotrexate. Data Data Last Documented VS Vital Signs Date Time Temp Pulse Resp B/P (MAP) Pulse Ox O2 Delivery O2 Flow Rate FiO2 05/14/17 23:24 97.5 95 18 144/63 (90) 99 Room Air Orders Orders Beta Hcg (Quant/Titer) (05/14/17 23:41) Complete Blood Count With Diff (05/14/17 23:41) Comprehensive Metabolic Panel (05/14/17 23:41) Urinalysis - C+S If Indicated (05/14/17 23:41) MDM Supervised Visit with SARAH: Yes Narrative Course I, Dr. Sena, have reviewed the advance practice practitioner's documentation and am in agreement, met with the patient face to face, made the diagnosis, and the medical decision making was done by me. *My assessment and Findings: The patient's abdomen is soft and does not seem to be tender to palpation. She is hemodynamically stable. Please see Mike Chapman PA-C's note for results of laboratory and radiographic evaluation, ED course, final diagnosis and disposition Scripts No Active Prescriptions or Reported Meds Mariann Sena MD May 14, 2017 23:46
[2017-05-15 00:14] LABS: AUTOMATED NEUTROPHIL # 3.7 TH/MM3 (1.8-7.7); BASOPHIL # 0.1 TH/MM3 (0-0.2); BASOPHIL % 0.9 % (0.0-2.0); EOSINOPHIL # 0.1 TH/MM3 (0-0.4); EOSINOPHIL % 1.5 % (0.0-4.0); HEMATOCRIT 33.1 % (35.0-46.0); HEMOGLOBIN 11.1 GM/DL (11.6-15.3); LYMPH % 33.8 % (9.0-44.0); LYMPHOCYTE # 2.1 TH/MM3 (1.0-4.8); MEAN CELL VOLUME 90.1 FL (80.0-100.0); MEAN CORPUSCULAR HEMOGLOBIN 30.2 PG (27.0-34.0); MEAN CORPUSCULAR HGB CONC 33.5 % (32.0-36.0); MEAN PLATELET VOLUME 8.5 FL (7.0-11.0); MONO % 4.6 % (0.0-8.0); MONOCYTE # 0.3 TH/MM3 (0-0.9); NEUT % 59.2 % (16.0-70.0); PLATELET COUNT 234 TH/MM3 (150-450); RED BLOOD COUNT 3.68 MIL/MM3 (4.00-5.30); RED CELL DISTRIBUTION WIDTH 19.6 % (11.6-17.2); WHITE BLOOD COUNT 6.3 TH/MM3 (4.0-11.0)
[2017-05-15 00:29] LABS: BILIRUBIN, URINE NEG (NEG); BLOOD, URINE LARGE (NEG); GLUCOSE,URINE NEG (NEG); KETONE, URINE 10 mg/dL (NEG); MUCUS URINE FEW /lpf (OCC); NITRITE,URINE NEG (NEG); SQUAMOUS EPITHELIAL CELL URINE 23 /hpf (0-5); URINE LEUKOCYTE ESTERASE SMALL (NEG); WHITE BLOOD CELL CLUMPS FEW
[2017-05-15 00:37] LABS: URINE COLOR DARK-RED (YELLW/STRAW)
[2017-05-15 00:48] LABS: ALBUMIN 3.3 GM/DL (3.4-5.0); ALT (GPT) 19 U/L (9-42); AST (GOT) 20 U/L (16-38); BICARBONATE 25.5 MEQ/L (21.0-32.0); BLOOD UREA NITROGEN 13 MG/DL (7-18); CALCIUM 8.6 MG/DL (8.5-10.1); CHLORIDE 110 MEQ/L (98-107); CREATININE 0.85 MG/DL (0.50-1.00); GLOMERULAR FILTRATION RATE 104 ML/MIN (>89); GLUCOSE,RANDOM 64 MG/DL (74-106); SODIUM (NA) 141 MEQ/L (136-145)
[2017-05-15 00:52] LABS: ALKALINE PHOSPHATASE 40 U/L (45-117); TOTAL BILIRUBIN ADULT 0.1 MG/DL (0.2-1.0); TOTAL PROTEIN 7.4 GM/DL (6.4-8.2)
== END 2017-05-15 01:20 | disposition home or self-care (01) ==
LOC: NEPD 23:23
DX: O00.90 Unspecified ectopic pregnancy without intrauterine pregnancy (principal); L08.9 Local infection of the skin and subcutaneous tissue, unspecified; L72.9 Follicular cyst of the skin and subcutaneous tissue, unspecified; R82.99 Other abnormal findings in urine; B96.89 Other specified bacterial agents as the cause of diseases classified elsewhere
CPT/HCPCS: 10060; 80053; 81001; 84702; 85025; 87086

== ENCOUNTER 2017-05-20 22:02 | Emergency (ER) | payer MEDICAID ==
[~2017-05-20] VITALS: Ht 162.6 cm; Wt 65.0 kg
[2017-05-20 22:05] VITALS: BP 128/70; PULSE 107; RESP 16; TEMP 98.8; O2SAT 98
--- NOTE | 2017-05-20 22:38 | PD ---
HPI Chief Complaint: Adult Literacy Teacher Problem/Complaint Time Seen by Provider: 22:31 Travel History International Travel<30 days: No Contact w/Intl Traveler<30days: No Traveled to known affect area: No History of Present Illness HPI 21-year-old female diagnosed with an ectopic on 05/09/17, given methotrexate, followed up as an outpatient with [employer] physician Dr. Fuentes, last seen by her 2 days ago, here for evaluation of foul-smelling vaginal discharge. The patient has had discharge since she was given methotrexate which was bloody. States that it became foul-smelling today. She denies fevers or chills. No abdominal pain. No urinary symptoms. PFSH Past Medical History Diminished Hearing: No Immunizations Current: Yes Tetanus Vaccination: < 5 Years Influenza Vaccination: Yes ?: Unknown : 2 Past Surgical History Ear Surgery: Yes (right ear tubes) Social History Alcohol Use: No Tobacco Use: No Substance Use: No Allergies-Medications (Allergen,Severity, Reaction): Coded Allergies: No Known Allergies (Verified Adverse Reaction, Unknown, 05/20/17) Reported Meds & Prescriptions Reported Meds & Active Scripts Active No Active Prescriptions or Reported Medications Review of Systems Except as stated in HPI: all other systems reviewed are Neg Physical Exam Narrative GENERAL: Well-developed, well-nourished, comfortable, no apparent distress. SKIN: Focused skin assessment warm/dry. HEAD: Atraumatic. Normocephalic. EYES: Pupils equal and round. No scleral icterus. No injection or drainage. ENT: Mucous membranes pink and moist. CARDIOVASCULAR: Regular rate and rhythm. No murmur appreciated. RESPIRATORY: No accessory muscle use. Clear to auscultation. Breath sounds equal bilaterally. GASTROINTESTINAL: Abdomen soft, non-tender, nondistended. [place] MUSCULOSKELETAL: No obvious deformities. No clubbing. No cyanosis. No edema. NEUROLOGICAL: Awake and alert. No obvious cranial nerve deficits. Motor grossly within normal limits. Normal speech. PSYCHIATRIC: Appropriate mood and affect; insight and judgment normal. Data Data Last Documented VS Vital Signs Date Time Temp Pulse Resp B/P (MAP) Pulse Ox O2 Delivery O2 Flow Rate FiO2 05/20/17 22:05 98.8 107 16 128/70 (89) 98 Room Air Orders Orders Gc And Chlamydia Pcr (05/20/17 22:35) Wet Prep Profile (05/20/17 22:35) Urinalysis - C+S If Indicated (05/20/17 22:35) Urine Culture (05/20/17 22:42) Labs Laboratory Tests Test 05/20/17 22:42 05/20/17 23:00 Urine Color LIGHT-YELLOW Urine Turbidity HAZY Urine pH 6.5 Urine Specific [place] 1.015 Urine Protein NEG mg/dL Urine Glucose (UA) NEG mg/dL Urine Ketones NEG mg/dL Urine Occult Blood MOD Urine Nitrite NEG Urine Bilirubin NEG Urine Urobilinogen LESS THAN 2.0 MG/DL Urine Leukocyte Esterase MOD Urine RBC 2 /hpf Urine WBC 3 /hpf Urine Squamous Epithelial Cells 9 /hpf Urine Bacteria MOD /hpf Microscopic Urinalysis Comment CULTURE INDICATED Clue Cells (Wet Prep) NONE SEEN Vaginal Trichomonas (Wet Prep) NONE SEEN Vaginal Yeast (Wet Prep) NONE SEEN MDM Medical Decision Making Medical Screen Exam Complete: Yes Emergency Medical Condition: Yes Differential Diagnosis Bacterial vaginosis, PID, endometritis, Narrative Course Initial vital signs show heart rate 107, blood pressure 128/70, pulse ox 98% on room air, oral temp of 98.8F. Repeat heart rate is 78 bpm without any intervention. UA shows moderate occult blood, moderate leukocyte esterase, moderate bacteria. Blood prep is negative for use, negative for clue cells, negative for Trichomonas. Patient's abdominal exam is completely benign. She does have some vaginal discharge that is foul-smelling with a fishy odor. Although wet prep is negative for clue cells, physical exam findings consistent with bacterial vaginosis. She be started on Flagyl and advised to follow-up with her [employer]IE[employer] physician Dr. Fuentes this week. She was advised on when to return to the emergency department. She verbalizes understanding and agreement with plan. Diagnosis Primary Impression: Vaginosis Referrals: Marti Fuentes MD 3 days Additional Instructions: Follow-up with your [employer]IEF [employer] TE[employer] physician Dr. Fuentes this week. Take Flagyl as prescribed. Return to the emergency department for worsening symptoms or any other concerns. Scripts Metronidazole (Flagyl) 500 Mg Tab 500 MG PO BID for Infection for 7 Days, #14 TAB 0 Refills Prov: Garcia Wyman MD 05/20/17 Disposition: 01 DISCHARGE HOME Condition: Stable Garcia Wyman MD May 20, 2017 22:38
[2017-05-20 23:01] LABS: BACTERIA, URINE MOD /hpf; BLOOD, URINE MOD (NEG); COMMENT (UR) CULTURE INDICATED; CULTURE IF INDICATED CULTURE INDICATED; GLUCOSE,URINE NEG (NEG); KETONE, URINE NEG (NEG); NITRITE,URINE NEG (NEG); PH, URINE 6.5 (5.0-8.5); SQUAMOUS EPITHELIAL CELL URINE 9 /hpf (0-5); URINE COLOR LIGHT-YELLOW (YELLW/STRAW)
[2017-05-20] MEDS ORDERED: METR-1 PO (23:43)
[2017-05-20] MEDS ORDERED: metroNIDAZOLE 500 MG TAB PO ONE (23:45)
[2017-05-21 02:43] LABS: CHLAMYDIA PCR NOT DETECTED (NOT DETECT); NEISSERIA PCR NOT DETECTED (NOT DETECT)
== END 2017-05-21 00:12 | disposition home or self-care (01) ==
LOC: NEPD 22:02
DX: N76.0 Acute vaginitis (principal)
CPT/HCPCS: 81001; 87086; 87210; 87491; 87591; 99283

== ENCOUNTER 2017-06-22 17:39 | Emergency (ER) | payer MEDICAID ==
[~2017-06-22 17:39] MED LIST changes: -DIFL150T PO; +METR-1 PO
[2017-06-22 18:26] VITALS: BP 120/68; PULSE 106; RESP 20; TEMP 98.5; O2SAT 99
--- NOTE | 2017-06-22 21:12 | PD ---
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 She was treated in the past with one dose of Diflucan and it resolved her symptoms. Patient is requesting that she could just forego a pelvic exams and she had one yesterday and asked for the possibility of a Diflucan treatment in the ER [facility] Past Medical History Diminished Hearing: No Immunizations Current: No Tetanus Vaccination: < 5 Years Influenza Vaccination: Yes ?: Not LMP: BLEEDING FOR LAST MONTH : 3 Para: 1 : 2 Ectopic : Yes Past Surgical History Ear Surgery: Yes (right ear tubes) Social History Alcohol Use: Yes (SOCIAL) Tobacco Use: No Substance Use: No Allergies-Medications (Allergen,Severity, Reaction): Coded Allergies: No Known Allergies (Verified Adverse Reaction, Unknown, 06/22/17) Reported Meds & Prescriptions Reported Meds & Active Scripts Active Metrogel Vaginal Gel (Metronidazole Vaginal Gel) 0.75 % Gel 1 Appl VAGINAL HS 7 Days Review of Systems Except as stated in HPI: all other systems reviewed are Neg Genitourinary: Positive: Other (vaginal itching) Physical Exam Narrative GENERAL: Nontoxic-appearing in no apparent distress SKIN: Warm and dry. HEAD: Atraumatic. Normocephalic. EYES: Pupils equal and round. No scleral icterus. No injection or drainage. ENT: No nasal bleeding or discharge. Mucous membranes pink and moist. NECK: Trachea midline. No JVD. CARDIOVASCULAR: Regular rate and rhythm. RESPIRATORY: No accessory muscle use. Clear to auscultation. Breath sounds equal bilaterally. GASTROINTESTINAL: Abdomen soft, non-tender, nondistended. Hepatic and splenic margins not palpable. MUSCULOSKELETAL: Extremities without clubbing, cyanosis, or edema. No obvious deformities. NEUROLOGICAL: Awake and alert. No obvious cranial nerve deficits. Motor grossly within normal limits. Five out of 5 muscle strength in the arms and legs. Normal speech. PSYCHIATRIC: Appropriate mood and affect; insight and judgment normal. Patient deferred pelvic exam Data Data Last Documented VS Vital Signs Date Time Temp Pulse Resp B/P (MAP) Pulse Ox O2 Delivery O2 Flow Rate FiO2 06/22/17 21:51 89 20 118/74 (89) 99 06/22/17 18:26 98.5 Orders Orders Fluconazole (Diflucan) (06/22/17 21:15) MDM Medical Decision Making Medical Screen Exam Complete: Yes Emergency Medical Condition: Yes Differential Diagnosis Differential includes hormone reactive vaginitis versus DVT versus Trichomonas versus sexual transmitted disease GC chlamydia versus candidal vaginitis versus a allergic vaginitis Narrative Course patient is requesting to be treated for a yeast infection with a simple dose of Diflucan 150 mg IV allow her to defer that pelvic exam and treat her with 150 of Diflucan by mouth and give her a prescription for MetroGel suppository for 1 week Diagnosis Primary Impression: Yeast infection Additional Impression: Vaginitis Qualified Codes: N76.0 - Acute vaginitis Scripts Metronidazole Vaginal Gel (Metrogel Vaginal Gel) 0.75 % Gel 1 APPL VAGINAL HS for Infection for 7 Days, #1 TUBE 0 Refills Prov: Guillermo Joaquin MD 06/22/17 Disposition: 01 DISCHARGE HOME Condition: Good Guillermo Joaquin MD Jun 22, 2017 21:12
[2017-06-22] MEDS ORDERED: FLUCONAZOLE 100 MG TAB PO ONE (21:15)
[2017-06-22] MEDS ORDERED: METR0.7528 VAGINAL (21:44)
[2017-06-22 21:51] VITALS: BP 118/74
== END 2017-06-22 21:52 | disposition home or self-care (01) ==
LOC: PHED 17:39
DX: N76.0 Acute vaginitis (principal); B37.3 Candidiasis of vulva and vagina
CPT/HCPCS: 99283

== ENCOUNTER 2017-09-07 08:11 | Emergency (ER) | payer MEDICAID ==
[~2017-09-07 08:11] MED LIST changes: -METR-1 PO; +METR0.7528 VAGINAL
[2017-09-07 08:20] VITALS: BP 116/60; PULSE 75; RESP 14; TEMP 97.9; O2SAT 100
[2017-09-07 09:54] LABS: BACTERIA, URINE RARE /hpf; BILIRUBIN, URINE NEG (NEG); BLOOD, URINE NEG (NEG); GLUCOSE,URINE NEG (NEG); KETONE, URINE NEG (NEG); MUCUS URINE FEW /lpf (OCC); NITRITE,URINE NEG (NEG); PH, URINE 5.5 (5.0-8.5); SQUAMOUS EPITHELIAL CELL URINE 4 /hpf (0-5); URINE COLOR YELLOW (YELLW/STRAW); URINE LEUKOCYTE ESTERASE NEG (NEG)
== END 2017-09-07 10:02 | disposition left against medical advice (07) ==
LOC: NED 08:11
DX: R39.9 Unspecified symptoms and signs involving the genitourinary system (principal)
CPT/HCPCS: 81001; 99281